=== PATIENT | female | born 1980 | race Caucasian/White ===

== ENCOUNTER 2020-09-03 07:21 | Inpatient (IN) | payer MEDICAID ==
[2020-09-03 07:51] LABS: APPEARANCE,URINE SLIGHTLY-CLOUDY; BILIRUBIN,URINE NEGATIVE (NEGATIVE); COLOR,URINE YELLOW; GLUCOSE, URINE NEGATIVE (NEGATIVE); KETONES,URINE NEGATIVE (NEGATIVE); LEUKOCYTE ESTERASE,URINE NEGATIVE (NEGATIVE); NITRITE,URINE NEGATIVE (NEGATIVE); PROTEIN,URINE 30 mg/dL (NEGATIVE); URINE SPECIFIC GRAVITY 1.024; UROBILINOGEN,URINE NEGATIVE mg/dL (<2.0)
[2020-09-03 08:15] LABS: URINE AMPHETAMINES SCREEN NEGATIVE; URINE BARBITURATES SCREEN NEGATIVE; URINE BENZODIAZEPINES SCREEN NEGATIVE; URINE COCAINE SCREEN NEGATIVE; URINE MARIJUANA (THC) SCREEN NEGATIVE; URINE METHADONE SCREEN NEGATIVE; URINE PHENCYCLIDINE SCREEN NEGATIVE
[2020-09-03 08:51] LABS: ABSOLUTE EOSINOPHILS # (AUTO) 0.1 10^3/uL (0.0-0.6); ABSOLUTE LYMPHOCYTES (AUTO) 1.4 10^3/uL (0.5-4.7); ABSOLUTE MONOCYTES (AUTO) 0.8 10^3/uL (0.1-1.4); ABSOLUTE NEUT (AUTO) 6.4 10^3/uL (1.7-8.2); BASOPHILS % (AUTO) 0.6 % (0-2); EOSINOPHILS % (AUTO) 0.6 % (0-6); HEMATOCRIT 32.4 % (36.0-47.0); HEMOGLOBIN 11.6 g/dL (12.0-15.5); LYMPHOCYTES % (AUTO) 15.8 % (13-45); MEAN CORPUSCULAR HEMOGLOBIN 31.9 pg (27.0-33.4); MEAN CORPUSCULAR HGB CONC 35.8 g/dL (32.0-36.0); MEAN CORPUSCULAR VOLUME 89 fl (80-97); MONOCYTES % (AUTO) 9.5 % (3-13); PLATELET COUNT 157 10^3/uL (150-450); RED BLOOD COUNT 3.64 10^6/uL (3.72-5.28); RED CELL DISTRIBUTION WIDTH 14.4 % (11.5-14.0); SEGMENTED NEUTROPHILS % (AUTO) 73.5 % (42-78); TOTAL CELLS COUNTED % (AUTO) 100 %; WHITE BLOOD COUNT 8.7 10^3/uL (4.0-10.5)
[2020-09-03 09:08] LABS: ALBUMIN 2.6 g/dL (3.5-5.0); ALKALINE PHOSPHATASE 161 U/L (38-126); ANION GAP 6 (5-19); ASPARTATE AMINO TRANSFERASE 18 U/L (14-36); BILIRUBIN,DIRECT 0.1 mg/dL (0.0-0.4); BILIRUBIN,TOTAL 0.4 mg/dL (0.2-1.3); BLOOD UREA NITROGEN 10 mg/dL (7-20); CALCIUM 8.5 mg/dL (8.4-10.2); CARBON DIOXIDE 24 mmol/L (22-30); CHLORIDE 104 mmol/L (98-107); GLUCOSE 73 mg/dL (75-110); POTASSIUM 3.9 mmol/L (3.6-5.0); TOTAL PROTEIN 5.1 g/dL (6.3-8.2); URIC ACID 4.7 mg/dL (2.5-7.0)
[2020-09-03] MEDS ORDERED: CEFAZOLIN SODIUM 2 GM in DEXTROSE 5%-WATER 50 ML IV PRN (09:35)
[2020-09-03] MEDS ORDERED: RINGERS SOLUTION,LACTATED 1,000 ML IV PRN (09:35)
[2020-09-03] MEDS ORDERED: CITRIC ACID/SODIUM CITRATE ORAL SOLN 15 ML UDCUP PO ONE (09:38)
[2020-09-03] MEDS ORDERED: CEFAZOLIN 2 GM/D5W RTU 2 GM/50 ML RTUPB IV PRN (09:42)
--- NOTE | 2020-09-03 09:51 | Admission Physical ---
Datetime Report Generated by CPN: 09/03/2020 09:51 CURRENT ADMISSION Chief Complaint: Uterine Contractions; Other Chief Complaint Other: Spotting Admit Impression : Term, Intrauterine ; Intact Membranes; Repeat Section Admit Plan: Admit to Unit; Initiate Section Protocol ALLERGIES Medication Allergies: No Medication Allergies: No Known Allergies (09/03/2020) OBSTETRICAL HISTORY EDC: 09/07/2020 00:00 : 3 Para: 2 Term: 2 : 0 SAB: 0 IAB: 0 Ectopic: 0 Livin Cesareans: 2 VBACs: 0 Multiple Births: 0 Gestational Diabetes: Yes Rh Sensitization: No Incompetent Cervix: No BRITTANY: No Infertility: No ART Treatment: No Uterine Anomaly: No IUGR: No Hx Previous C/S: Yes Macrosomia: No Hx Loss/Stillborn: No PIH: Yes Hx : No Placenta Previa/Abruption: No Depression/PP Depression: Yes PTL/PROM: No Post Hemorrhage: No Current Procedures: Ultrasound; NST Obstetrical History Comments: G1 - C/S Full Term 2005 - Failure to progress G2 - C/S Full Term 2012 - Repeat G3 - Current SEE RECORDS Alcohol: No Marijuana : No Cocaine: No Other Illicit Drugs: No Cigarettes: Former Smoker. 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 Heart Disease: No Hosp/Surgery: Yes Autoimmune Disorder: No Anesthetic Complications: No Kidney Disease: No Abnormal Pap Smear: No Neuro/Epilepsy: No Psychiatric Disorders: No Other Medical Diseases: No Hepatitis/Liver Disease: No Significant Family History: No Varicosities/Phlebitis: No Trauma/Violence : No Thyroid Dysfunction: No Medical History Comments: Pre-E and GDM with prior two pregnancies, x2 c/s, depression INFECTIOUS HISTORY Gonorrhea: No Genital Herpes: No Chlamydia: No Tuberculosis: No Syphilis: No Hepatitis: No HIV/AIDS Exposure: No Rash or Viral Illness: No HPV: No PHYSICAL EXAM General: Normal HEENT: Normal Neurologic: Normal Thyroid: Normal Heart: Normal Lungs: Normal Breast: Normal Back: Normal Abdomen: Normal Genitourinary Exam: Normal Extremities: Normal DTRs: Normal Pelvic Type: Adequate Vital Signs: Reviewed FETUS A EGA: 39.3 Monitoring: External US FHR- Baseline: 140 Variability: Moderate 6-25bpm Accelerations: 15X15 Decelerations: None FHR Category: Category I Admit Comment: Pt presented to L_D c/o contractions overnight along w/ noticing some vaginal bleeding early this morning. No active bleeding currently. Pt Previous c/s x2 at 39.3 weeks, desires Repeat w/ BTL. Hx of GDM along w/ Pre-eclampsia for her past 2 pregnancies. Pt has a scheduled Rpt c/s for this but since pt having contractions along w/ elevated BP, d/w Dr Steve and will proceed with Repeat and BTL today. Pt has been consented for Rpt and BTL, plan of care discussed and questions answered. Pt verbalizes understanding. Dr Steve agrees w/ plan of care PLANS FOR LABOR AND DELIVERY Labor and Delivery: None Pain Management: None Feeding Preference: Breast Benefit of Breast Feed Discussed: Yes Circumcision: Yes INFORMED CONSENT Assignment: Ashutosh Steve MD Signature: with User ID: [email or web address] : with User ID: [email or web address]
[2020-09-03 10:18] LABS: UR PRO/CREAT RATIO RESULT 0.1 mg/mg (0.0-0.2); URINE CREATININE 96.9 mg/dL (15-278); URINE PROTEIN 7.7 mg/dL (<12)
[2020-09-03] MEDS ORDERED: CEFAZOLIN 2 GM/D5W RTU 2 GM/50 ML RTUPB IV ONE (11:28)
[2020-09-03] MEDS ORDERED: CITRIC ACID/SODIUM CITRATE ORAL SOLN 15 ML UDCUP ONE (11:28)
[2020-09-03] MEDS ORDERED: FENTANYL CITRATE INJ/PF 100 MCG/2 ML AMPUL ONE (13:33)
[2020-09-03] MEDS ORDERED: MIDAZOLAM 2 MG/2 ML INJ ONE (13:33)
[2020-09-03] MEDS ORDERED: EPHEDRINE SULFATE INJ 50 MG/1 ML AMPULE ONE (13:33)
[2020-09-03] MEDS ORDERED: OXYTOCIN 10 UNIT/ML VIAL ONE ×2 (13:33→13:34)
[2020-09-03] MEDS ORDERED: KETOROLAC TROMETHAMINE INJ/PF 30 MG/1 ML SDV ONE (13:33)
[2020-09-03] MEDS ORDERED: ONDANSETRON HCL INJ/PF 4 MG/2 ML SDV ONE (13:34)
[2020-09-03] MEDS ORDERED: ACETAMINOPHEN 1,000 MG/100 ML RTUPB IV ONE (13:34)
[2020-09-03] MEDS ORDERED: MORPHINE SULFATE 10 MG/ML INJ ONE ×2 (13:35→16:13)
[2020-09-03] MEDS ORDERED: PROMETHAZINE HCL INJ 25 MG/1 ML VIAL IV PRN ×3 (15:11→16:06)
[2020-09-03] MEDS ORDERED: ACETAMINOPHEN 325 MG TABLET PO PRN (15:11)
[2020-09-03] MEDS ORDERED: OXYCODONE-ACETAMINOPHEN 5-325 MG TABLET PO PRN ×3 (15:11→16:06)
[2020-09-03] MEDS ORDERED: DIPH/PERTUSS(ACELL)/TETANUS VAC/PF 0.5 ML SYR (>=10YO) IM PRN (15:11)
[2020-09-03] MEDS ORDERED: OXYTOCIN/0.9 % SODIUM CHLORIDE 30 UNIT/500 ML RTUINJ IV PRN (15:11)
[2020-09-03] MEDS ORDERED: ACETAMINOPHEN 1,000 MG/100 ML RTUPB IV PRN (15:11)
[2020-09-03] MEDS ORDERED: HYDROMORPHONE HCL INJ/PF 2 MG/ML AMPULE IV PRN (15:11)
[2020-09-03] MEDS ORDERED: MEASLES,MUMPS&RUBELLA VACC/PF 0.5 ML VIAL SUBCUT PRN (15:11)
[2020-09-03] MEDS ORDERED: SIMETHICONE 80 MG TAB.CHEW PO PRN (15:11)
--- NOTE | 2020-09-03 15:18 | Operative Report ---
Operative Report DATE OF SURGERY: 09/03/20 PREOPERATIVE DIAGNOSIS: Repeat and desires tubal ligation with Filshie clips POSTOPERATIVE DIAGNOSIS: Same OPERATION: Repeat via low transverse uterine incision and tubal ligation with bilateral Filshie clip placement SURGEON: CHUCK RICCI ANESTHESIA: Spinal TISSUE REMOVED OR ALTERED: Placenta and fallopian tubes COMPLICATIONS: None ESTIMATED BLOOD LOSS: 400 cc INTRAOPERATIVE FINDINGS: Viable . Normal uterus tubes and ovaries PROCEDURE: Patient was taken to the OR and placed in supine position after her spinal anesthesia. She is prepared and draped in sterile fashion. Parmar was placed for drainage of the bladder. Low transverse incision was made and carried down the level of the fascia. The fascial incision was made with knife and extended bilaterally with curved Cruz scissors. The fascia was off the rectus muscles using sharp and blunt dissection. The rectus muscles are in the midline. The peritoneum was entered without incident. Bladder blade was placed in uterine segment was identified. A low transverse incision was made creating a bladder flap. Bladder blade was placed low transverse uterine incision was made with the knife and extended with fingertips. The baby was del ivered with some fundal pressure. Mouth and nose were suctioned free. The cord is doubly clamped and cut. Baby is passed off to the cd storage and materials make up helper in attendance. The placenta was manually extracted with trailing membranes. The uterus was externalized wrapped in a moist lap sponge. Uterine contents wiped free. Uterus was closed with a running locking layer of 0 chromic suture using the second layer to imbricate the first completing a double layer closure of the uterus. The serosa was closed with a running 2-0 chromic stitch. Filshie clips were placed across the mid isthmic portion of each fallopian tube after identifying the tube by the fimbria. The pelvis was irrigated and suctioned free of fluid the uterus was replaced in the abdomen. The abdominal wall peritoneum was closed with running 2-0 chromic stitch. Fascia was closed with a running 0 Vicryl in 2 segments. Jad's layer was brought together with 0 plain gut stitch and the skin was closed with running subcuticular 4-0 undyed Vicryl stitch. The wound was dressed mother and baby did well.
--- NOTE | 2020-09-03 15:43 | Warning Signs in Babies ---
VOD Warning Signs Datetime Report Generated by [facility]: 09/03/2020 15:42 VOD#608 -Warning Signs in Babies: Needs to be viewed. (09/03/2020 07:35:Esther Garcia RN)
[2020-09-03] MEDS ORDERED: OXYTOCIN/0.9 % SODIUM CHLORIDE 30 UNIT/500 ML RTUINJ ONE (15:59)
[2020-09-03] MEDS ORDERED: FENTANYL CITRATE INJ/PF 100 MCG/2 ML AMPUL IV PRN ×3 (16:06)
[2020-09-03] MEDS ORDERED: ONDANSETRON HCL INJ/PF 4 MG/2 ML SDV IV PRN (16:06)
[2020-09-03] MEDS ORDERED: MEPERIDINE HCL/PF INJ 25 MG/1 ML DISP.SYRIN IV PRN (16:06)
[2020-09-03] MEDS ORDERED: DIPHENHYDRAMINE HCL 50 MG/ML VIAL IV PRN (16:06)
[2020-09-03] MEDS: MORPHINE SULFATE 10 MG/ML INJ IV PRN ×3 (16:15→16:43)
[2020-09-03] MEDS: RINGERS SOLUTION,LACTATED 1,000 ML IV PRN ×2 (16:30→21:19)
--- NOTE | 2020-09-03 17:30 | Birth Certificate Data ---
Cert Data Datetime Report Generated by CPN: 09/03/2020 17:30 CERTIFICATE DATA Delivery Provider: Ashutosh Steve MD (09/03/2020 14:15:Esther Garcia RN) 48a. Number of Prev Live Births: 2 (09/03/2020 07:35:Esther Garcia RN) 48b. Now Livin (09/03/2020 07:35:Esther Garcia RN) 48c. Live Births Now : 0 (09/03/2020 07:35:QS system process) 48d. Date of Last Live : 02/27/2013 00:00 (09/03/2020 07:35:Esther Garcia RN) 48e. Losses: 0 (09/03/2020 07:35:Esther Garcia RN) RISK FACTORS IN THIS 49a. Diabetes: Yes (09/03/2020 07:35:Esther Garcia RN) Type of Diabetes: Gestational Diabetes (09/03/2020 07:35:Esther Garcia RN) 49b. Hypertension: Yes (09/03/2020 07:35:Esther Garcia RN) Type of Hypertension: Gestational (PIH, Pre-eclampsia) (09/03/2020 07:35:Esther Garcia RN) 49c. Previous Births: 0 (09/03/2020 07:35:Esther Garcia RN) 49d. Stillborns: No (09/03/2020 07:35:Esther Garcia RN) 49d. IUGR: No (09/03/2020 07:35:Esther Garcia RN) 49e. Infertility Treatment: No (09/03/2020 07:35:Esther Garcia RN) 49f. Previous Cesareans: 2 (09/03/2020 07:35:Esther Garcia RN) Mother's Height 50b. Height Inches: 64 (09/03/2020 17:26:QS system process) Mother's Weight 51b. Weight at Delivery (lbs): 240 (09/03/2020 17:26:QS system process) Infections Present/Treated 53a. Gonorrhea: No (09/03/2020 07:35:Esther Garcia RN) Results this Hospital Visit : Negative (09/03/2020 07:35:Augustus Calle RN) 53b. Syphilis: No (09/03/2020 07:35:Esther Garcia RN) 53c. Chlamydia: No (09/03/2020 07:35:Esther Garcia RN) Results this Hospital Visit: Negative (09/03/2020 07:35:Augustus Calle RN) 53d. Hepatitis B: No (09/03/2020 07:35:Esther Garcia RN) Results this Hospital Visit: Negative (09/03/2020 07:35:Augustus Calle RN) 53e. Hepatitis C: Negative (Annotations: Data stored by [facility] on behalf of user) (09/03/2020 07:35:Esther Garcia RN) 53h. Mother Tested for HBsAG: Yes (09/03/2020 07:35:Esther Garcia RN) 53i. Date Tested: 03/28/2020 00:00 (Annotations: Data stored by Lisa on behalf of user) (09/03/2020 07:35:Esther Garcia RN) 53j. Test Result: Negative (09/03/2020 07:35:Augustus Calle RN) Obstetric Procedures 54a, b, c. Obstetric Procedures: Ultrasound; NST (09/03/2020 07:35:Esther Garcia RN) Cigarette Smoking Cigarette Smoking: Former Smoker. [id number] (09/03/2020 07:35:Esther Garcia RN) 55a. 3 Months Before Preg - Ci (09/03/2020 07:35:Esther Garcia RN) 55a. Packs: 0 (09/03/2020 07:35:Esther Garcia RN) 55b. 1st Trimester of Preg- Ci (09/03/2020 07:35:Esther Garcia RN) 55b. Packs: 0 (09/03/2020 07:35:Esther Garcia RN) 55c. 2nd Trimester of Preg- Ci (09/03/2020 07:35:Esther Garcia RN) 55c. Packs: 0 (09/03/2020 07:35:Esther Garcia RN) 55d. 3rd Trimester of Preg- Ci (09/03/2020 07:35:Esther Garcia RN) 55d. Packs: 0 (09/03/2020 07:35:Esther Garcia RN) Onset of Labor 56a. PROM >12 Hrs: 0.02 (09/03/2020 07:35:QS system process) 57a. Induction of Labor: N/A (09/03/2020 07:35:Esther Garcia RN) 57c. Non-Vertex Presentation A: Vertex (09/03/2020 07:35:Esther Garcia RN) 57d. Steroids - Lung Mat: None (09/03/2020 07:35:Esther Garcia RN) 57d. Steroids - Lung Mat: Not Applicable (09/03/2020 07:35:Esther Garcia RN) 57g. Moderate/Heavy Meconium: Heavy Meconium (09/03/2020 07:35:Esther Garcia RN) 57h. Intolerance of Labor: Repeat Elective (09/03/2020 07:35:Esther Garcia RN) 57i. Epidural/Spinal Anesthesia: None (09/03/2020 07:35:Esther Garcia RN) Method of Delivery 58a. Forceps - Unsuccessful A: N/A (09/03/2020 07:35:Esther Garcia RN) 58b. Vacuum - Unsuccessful A: N/A (09/03/2020 07:35:Esther Garcia RN) 58c. Presentation at 58c. Presentation at - A : Vertex (09/03/2020 07:35:Esther Garcia RN) 58c. Presentation at - A : N/A (09/03/2020 07:35:Esther Garcia RN) 58c. Presentation at - A : Cephalic (09/03/2020 07:35:Esther Garcia RN) Final Route and Method of Del 58d. Baby A Route/Delivery: (09/03/2020 07:35:Esther Garcia RN) 58e. Trial of Labor Attempted: No (09/03/2020 07:35:Esther Garcia RN) 58e. Trial of Labor Attempted A: N/A (09/03/2020 07:35:Esther Garcia RN) 58e. Trial of Labor Attempted B: N/A (09/03/2020 07:35:Esther Garcia RN) Maternal Morbidity 59b. 3rd or 4th Degree Lacs: None (09/03/2020 07:35:Esther Niebuhr, RN) Birthweight Baby A: 3440 (09/03/2020 07:35:Yana Fontana RN) 60a. Pounds : 7 (09/03/2020 07:35:QS system process) 60b. Ounces: 9 (09/03/2020 07:35:QS system process) 61. GA at Delivery Baby A: 39.3 (09/03/2020 07:35:Esther Garcia RN) : Full Term- 39- 40.6 Weeks (09/03/2020 07:35:QS system process) 62a. 5 Minute Baby A: 9 (09/03/2020 07:35:QS system process)
--- NOTE | 2020-09-03 17:30 | Delivery Summary ---
Del Sum A-C Datetime Report Generated by CPN: 09/03/2020 17:30 DELIVERY PERSONNEL DELIVERY PERSONNEL: [id number] Delivery Doctor:: Ashutosh Steve MD TIMBER REPAIRER:: Yanci Matos CRNA Shipping Room Helper:: Esther Garcia RN Neonatal Nurse Practitioner:: ESTEFANY Lewis Nursery Nurse:: Yana Fontana RN Paleontological Helper/QUALIFICATIONS EXAMINER: Luly Mayfield CST Paleontological Helper/QUALIFICATIONS EXAMINER: Mone Gutierrez, COMPLIANCE SPECIALIST MATERNAL INFORMATION Delivery Anesthesia: Spinal Medications After Delivery: Pitocin 30 Units in 500ml NS/D5W; Pitocin Drip 20 Units/1000ml NSS Delivery QBL: 473 Maternal Complications: None LABOR SUMMARY EDC: 09/07/2020 00:00 No. Babies in Womb: 1 Attempted: No Labor Anesthesia: None LABOR INFORMATION Reason for Induction: Not Applicable Oxytocin: N/A Group B Beta Strep: Negative Steroids Given: None Reason Steroids Not Administered: Not Applicable MEMBRANES Membranes Rupture Method: Artificial Rupture of Membranes: 09/03/2020 14:28 Length of Rupture (hr): 0.02 Amniotic Fluid Color: Heavy Meconium Amniotic Fluid Amount: Moderate Amniotic Fluid Odor: Normal STAGES OF LABOR Stage 3 hr: 0 Stage 3 min: 1 VAGINAL DELIVERY Episiotomy: None Laceration #1: None Laceration Extension #1: N/A Laceration Repair: Not Applicable Sponge Count Correct: N/A Sharps Count Correct: N/A CSECTION DELIVERY Primary Indication: Repeat Elective CSection Urgency: Non-Scheduled CSection Incidence: Repeat Labor: N/A Elective: Elective CSection Incision: Classical Sterilization Procedure: Ring and Clip BABY A INFORMATION Delivery Date/Time: 09/03/2020 14:29 Method of Delivery: Nurse Controlled Delivery: No Born in Route : No : N/A Forceps: N/A Vacuum Extraction: N/A Shoulder Dystocia : No PRESENTATION/POSITION BABY A Presentation: Cephalic Cephalic Presentation: Vertex Breech Presentation: N/A PLACENTA INFORMATION BABY A Placenta Delivery Time : 09/03/2020 14:30 Placenta Method of Delivery: Manual Removal Placenta Status: Delivered SCORES BABY A Heart Rate 1 min: >100 bpm Resp Effort 1 min: Good Cry Reflex Irritability 1 min: Cough or Sneeze or Pulls Away Muscle Tone 1 min: Active Motion Color 1 min: Blue/Pale SCORE 1 MIN: 8 Heart Rate 5 min: >100 bpm Resp Effort 5 min: Good Cry Reflex Irritability 5 min: Cough or Sneeze or Pulls Away Muscle Tone 5 min: Active Motion Color 5 min: Body [place], Extremities Blue SCORE 5 MIN: 9 INFORMATION BABY A Gestational Age at Delivery: 39.3 Gestational Status: Full Term- 39- 40.6 Weeks Infant Outcome : Liveborn Infant Condition : Stable Infant Sex: Male IDENTIFICATION BABY A Verification Date/Time: 09/03/2020 14:30 ID Band Number: [id number] Mother's Name Verified: Yes Infant RN Verifying : Vasiliy, RN Additional Verifying Personnel: Jessica Fontana RN WEIGHT/LENGTH BABY A Infant Birthweight (gm): 3440 Infant Weight (lb): 7 Infant Weight (oz): 9 Length (in): 20.00 Infant Length (cm): 50.80 CORD INFORMATION BABY A No. Cord Vessels: 3 Nuchal Cord : N/A Cord Blood Taken: Yes-For Eval (Mom's Blood Type - or O+) Infant Suction: Mouth; Nose ASSESSMENT BABY A Skin to Skin: Yes Skin to Skin Time (min): 5 BABY B INFORMATION : N/A
[2020-09-03] MEDS: DOCUSATE SODIUM 100 MG CAPSULE PO SCH (18:46)
[2020-09-03] MEDS: OXYCODONE-ACETAMINOPHEN 5-325 MG TABLET PO PRN (19:36)
[2020-09-03] MEDS: KETOROLAC TROMETHAMINE INJ/PF 30 MG/1 ML SDV IV SCH (21:19)
[2020-09-03] MEDS: IBUPROFEN 800 MG TABLET PO SCH (23:22)
[2020-09-04] MEDS: OXYCODONE-ACETAMINOPHEN 5-325 MG TABLET PO PRN ×4 (04:38→19:36)
[2020-09-04] MEDS: KETOROLAC TROMETHAMINE INJ/PF 30 MG/1 ML SDV IV SCH (06:13)
[2020-09-04] MEDS: IBUPROFEN 800 MG TABLET PO SCH ×4 (06:13→20:35)
[2020-09-04] MEDS ORDERED: MEASLES,MUMPS&RUBELLA VACC/PF 0.5 ML VIAL SUBCUT PRN (07:30)
[2020-09-04] MEDS ORDERED: PROMETHAZINE HCL INJ 25 MG/1 ML VIAL IV PRN (07:30)
[2020-09-04] MEDS ORDERED: DIPH/PERTUSS(ACELL)/TETANUS VAC/PF 0.5 ML SYR (>=10YO) IM PRN (07:30)
[2020-09-04 07:55] LABS: HEMATOCRIT 29.8 % (36.0-47.0); HEMOGLOBIN 10.5 g/dL (12.0-15.5); MEAN CORPUSCULAR HEMOGLOBIN 31.7 pg (27.0-33.4); MEAN CORPUSCULAR HGB CONC 35.1 g/dL (32.0-36.0); MEAN CORPUSCULAR VOLUME 90 fl (80-97); PLATELET COUNT 142 10^3/uL (150-450); WHITE BLOOD COUNT 9.6 10^3/uL (4.0-10.5)
[2020-09-04] MEDS: SERTRALINE HCL 50 MG TABLET PO SCH (10:04)
[2020-09-04] MEDS: DOCUSATE SODIUM 100 MG CAPSULE PO SCH ×2 (10:04→17:59)
[2020-09-04] MEDS: PRENATAL VITAMIN W DHA CAPSULE PO SCH (10:04)
--- NOTE | 2020-09-04 13:20 | PDOC PROGRESS REPORT ---
Subjective-OB Progress Note for:: 09/04/20 Subjective: 40yo G3 now P3 s/p repeat with tubal ligation ppd1. Pt is ambulating, passing gas, and voiding without difficulty. Reports pain is well controlled with medication, no concerns at this time. Physical Exam (OB) Vital Signs: Temp Pulse Resp BP Pulse Ox 98.0 F 75 18 122/82 99 09/04/20 07:33 09/04/20 07:23 09/04/20 07:23 09/04/20 07:23 09/04/20 07:23 Intake & Output 09/03/20 09/04/20 09/05/20 06:59 06:59 06:59 Intake Total 1519 380 Output Total 300 300 Balance 1219 80 Weight 108.5 kg - General General Appearance: Appears well In distress: None - PIH/Pre-Eclampsia Clonus: Negative Headache: Absent Epigastric Pain: No Visual Changes: No - Dressing Removed: No Incision: Dressing, Well Approximated Closure Type: Opsite - Bilateral Tubal Ligation Dressing Removed: No - Maternal Morbidity 59. Maternal Morbidity (serious complications experinced by the mother associated with labor and delivery: None of the above - Lochia Lochia Amount: Scant < 10 ml Lochia Color: Rubra/Red - Abdomen Description: Tender, Soft Hernia Present: No Fundal Description: Firm, Midline Fundal Height: u/u - u/2 - Respiratory Respiratory Status: No respiratory distress - Extremities Upper extremity: Normal inspection Lower extremities: Normal inspection - Neurological Cognition: Normal Orientation: AAOx4 - Psychological Associated symptoms: Normal affect, Normal mood Objective-Diagnostic Laboratory: 09/04/20 07:47 09/03/20 08:41 09/04/20 09/04/20 07:47 07:47 WBC 9.6 RBC 3.30 L Hgb 10.5 L Hct 29.8 L MCV 90 MCH 31.7 MCHC 35.1 RDW 15.0 H Plt Count 142 L Blood Type A NEGATIVE Assessment and Plan(PN) - Assessment and Plan (1) S/P repeat low transverse Is this a current diagnosis for this admission?: Yes Plan: routine pp care (2) Tubal ligation status Is this a current diagnosis for this admission?: Yes Plan: routine pp care (3) Acute blood loss anemia Is this a current diagnosis for this admission?: Yes Plan: increase dietary iron and po supplementation - Time Spent with Patient Time with patient: Less than 15 minutes Medications reviewed and adjusted accordingly: Yes - Disposition Anticipated Discharge Disposition: Home, Self Care Anticipated Discharge Timeframe: within 24 hours
[2020-09-05] MEDS: IBUPROFEN 800 MG TABLET PO SCH ×2 (03:18→09:20)
--- NOTE | 2020-09-05 09:18 | PDOC DISCHARGE SUMMARY ---
Impression - Admit/DC Date/PCP Admission Date/Primary Care Provider: 09/03/20 09:43 SHWETA JI MD Discharge Date: 09/05/20 - Discharge Diagnosis (1) S/P repeat low transverse Is this a current diagnosis for this admission?: Yes (2) Tubal ligation status Is this a current diagnosis for this admission?: Yes - Additional Information Resuscitation Status: Full Code Discharge Diet: Regular Discharge Activity: Balance Activity w/Rest, No Lifting Over 10 Pounds, No Li fting/Push/Pulling, Pelvic Rest, No tub bath Referrals: SHWETA JI MD [Primary Care Provider] - Prescriptions: Oxycodone HCl/Acetaminophen [Percocet 5-325 mg Tablet] 1 tab PO Q4HP PRN #30 tablet PRN Reason: For Pain Scale 3-5 Ibuprofen [Motrin 800 mg Tablet] 800 mg PO Q8HP PRN #60 tablet PRN Reason: Home Medications: Fluoxetine HCl [Prozac 20 mg Capsule] 20 mg PO DAILY 09/03/20 Vit No.130/Iron/Folic [ Tablet] 1 each PO DAILY 09/03/20 Ibuprofen [Motrin 800 mg Tablet] 800 mg PO Q8HP PRN #60 tablet 09/05/20 Oxycodone HCl/Acetaminophen [Percocet 5-325 mg Tablet] 1 tab PO Q4HP PRN #30 tablet 09/05/20 HPI Reason(s) for Admission: Ceasarean Section-Repeat Procedures: None Intrapartum Procedure(s): : Low Cervical, Transverse Hospital Course 59. Maternal Morbidity (serious complications experinced by the mother associated with labor and delivery: None of the above Results Laboratory Results: WBC 9.6 10^3/uL (4.0-10.5) 09/04/20 07:47 RBC 3.30 10^6/uL (3.72-5.28) L 09/04/20 07:47 Hgb 10.5 g/dL (12.0-15.5) L 09/04/20 07:47 Hct 29.8 % (36.0-47.0) L 09/04/20 07:47 MCV 90 fl (80-97) 09/04/20 07:47 MCH 31.7 pg (27.0-33.4) 09/04/20 07:47 MCHC 35.1 g/dL (32.0-36.0) 09/04/20 07:47 RDW 15.0 % (11.5-14.0) H 09/04/20 07:47 Plt Count 142 10^3/uL (150-450) L 09/04/20 07:47 Lymph % (Auto) 15.8 % (13-45) 09/03/20 08:41 Jenkins % (Auto) 9.5 % (3-13) 09/03/20 08:41 Eos % (Auto) 0.6 % (0-6) 09/03/20 08:41 Baso % (Auto) 0.6 % (0-2) 09/03/20 08:41 Absolute Neuts (auto) 6.4 10^3/uL (1.7-8.2) 09/03/20 08:41 Absolute Lymphs (auto) 1.4 10^3/uL (0.5-4.7) 09/03/20 08:41 Absolute Monos (auto) 0.8 10^3/uL (0.1-1.4) 09/03/20 08:41 Absolute Eos (auto) 0.1 10^3/uL (0.0-0.6) 09/03/20 08:41 Absolute Basos (auto) 0.0 10^3/uL (0.0-0.2) 09/03/20 08:41 Seg Neutrophils % 73.5 % (42-78) 09/03/20 08:41 Sodium 134.2 mmol/L (137-145) L 09/03/20 08:41 Potassium 3.9 mmol/L (3.6-5.0) 09/03/20 08:41 Chloride 104 mmol/L (98-107) 09/03/20 08:41 Carbon Dioxide 24 mmol/L (22-30) 09/03/20 08:41 Anion Gap 6 (5-19) 09/03/20 08:41 BUN 10 mg/dL (7-20) 09/03/20 08:41 Creatinine 0.57 mg/dL (0.52-1.25) 09/03/20 08:41 Est GFR ( Amer) > 60 (>60) 09/03/20 08:41 Est GFR (MDRD) Non-Af > 60 (>60) 09/03/20 08:41 Glucose 73 mg/dL (75-110) L 09/03/20 08:41 Uric Acid 4.7 mg/dL (2.5-7.0) 09/03/20 08:41 Calcium 8.5 mg/dL (8.4-10.2) 09/03/20 08:41 Total Bilirubin 0.4 mg/dL (0.2-1.3) 09/03/20 08:41 Direct Bilirubin 0.1 mg/dL (0.0-0.4) 09/03/20 08:41 Neonat Total Bilirubin Not Reportable 09/03/20 08:41 Neonat Direct Bilirubin Not Reportable 09/03/20 08:41 Neonat Indirect Bili Not Reportable 09/03/20 08:41 AST 18 U/L (14-36) 09/03/20 08:41 ALT 9 U/L (<35) 09/03/20 08:41 Alkaline Phosphatase 161 U/L (38-126) H 09/03/20 08:41 Total Protein 5.1 g/dL (6.3-8.2) L 09/03/20 08:41 Albumin 2.6 g/dL (3.5-5.0) L 09/03/20 08:41 Urine Color YELLOW 09/03/20 07:30 Urine Appearance SLIGHTLY-CLOUDY 09/03/20 07:30 Urine pH 7.0 (5.0-9.0) 09/03/20 07:30 Ur Specific [place] 1.024 09/03/20 07:30 Urine Protein 30 mg/dL (NEGATIVE) H 09/03/20 07:30 Urine Glucose (UA) NEGATIVE mg/dL (NEGATIVE) 09/03/20 07:30 Urine Ketones NEGATIVE mg/dL (NEGATIVE) 09/03/20 07:30 Urine Blood LARGE (NEGATIVE) H 09/03/20 07:30 Urine Nitrite NEGATIVE (NEGATIVE) 09/03/20 07:30 Urine Bilirubin NEGATIVE (NEGATIVE) 09/03/20 07:30 Urine Urobilinogen NEGATIVE mg/dL (<2.0) 09/03/20 07:30 Ur Leukocyte Esterase NEGATIVE (NEGATIVE) 09/03/20 07:30 Urine Creatinine 96.9 mg/dL (15-278) 09/03/20 09:18 Protein/Creatinin Ratio 0.1 mg/mg (0.0-0.2) 09/03/20 09:18 Urine Total Protein 7.7 mg/dL (<12) 09/03/20 09:18 Urine Ascorbic Acid NEGATIVE (NEGATIVE) 09/03/20 07:30 Urine Opiates Screen NEGATIVE 09/03/20 07:30 Urine Methadone Screen NEGATIVE 09/03/20 07:30 Ur Barbiturates Screen NEGATIVE 09/03/20 07:30 Ur Phencyclidine Scrn NEGATIVE 09/03/20 07:30 Ur Amphetamines Screen NEGATIVE 09/03/20 07:30 U Benzodiazepines Scrn NEGATIVE 09/03/20 07:30 Urine Cocaine Screen NEGATIVE 09/03/20 07:30 U Marijuana (THC) Screen NEGATIVE 09/03/20 07:30 RPR NONREACTIVE (NONREACTIVE) 09/03/20 08:41 Blood Type A NEGATIVE 09/04/20 07:47 Antibody Screen NEGATIVE 09/03/20 08:41 Screen NEGATIVE 09/04/20 07:47 Plan Plan of Treatment: f/u at [facility] as scheduled Time Spent: Less than 30 Minutes
[2020-09-05] MEDS: DOCUSATE SODIUM 100 MG CAPSULE PO SCH (09:19)
[2020-09-05] MEDS: PRENATAL VITAMIN W DHA CAPSULE PO SCH (09:19)
[2020-09-05] MEDS: SERTRALINE HCL 50 MG TABLET PO SCH (09:19)
[2020-09-05 11:42] VITALS: BP 136/84
== END 2020-09-05 13:27 | disposition home or self-care (01) | DRG 785 ==
LOC: LC 07:21 → LR 09:43 → 2S 17:10
PROVIDERS: ADMIT Obstetrics & Gynecology; ATTEND Obstetrics & Gynecology
PROC: 10D00Z1 Extraction of Products of Conception, Low, Open Approach (ICD-10-PCS; principal; 2020-09-03)
PROC: 0UL70CZ Occlusion of Bilateral Fallopian Tubes with Extraluminal Device, Open Approach (ICD-10-PCS; 2020-09-03)
PROC: 3E0234Z Introduction of Serum, Toxoid and Vaccine into Muscle, Percutaneous Approach (ICD-10-PCS; 2020-09-04)
DX: O34.211 Maternal care for low transverse scar from previous cesarean delivery (principal); O77.0 Labor and delivery complicated by meconium in amniotic fluid; O26.893 Other specified pregnancy related conditions, third trimester; O99.02 Anemia complicating childbirth; D64.9 Anemia, unspecified; Z30.2 Encounter for sterilization; Z67.11 Type A blood, Rh negative; Z87.891 Personal history of nicotine dependence; Z3A.39 39 weeks gestation of pregnancy; Z37.0 Single live birth; Z86.32 Personal history of gestational diabetes
CPT/HCPCS: 1961; 36415; 80053; 80307; 81005; 82570; 84156; 84550; 85025; 85027; 85461; 86592; 86850; 86900; 86901; 94799; J0131; J0690; J1170; J1885; J2250; J2270; J2405; J2590; J2790; J3010; J3490; J7120